=== PATIENT | male | born 1990 | race Caucasian/White ===

== ENCOUNTER 2024-07-15 14:57 | Emergency (ER) | payer OTHER, SELFPAY ==
[2024-07-15 15:05] VITALS: BP 113/77; PULSE 56; RESP 20; TEMP 37; O2SAT 100; BMI 19.0
--- NOTE | 2024-07-15 17:57 | ED_ITS ---
HPI - Skin/Abscess/Foreign Bdy <Leslie Aguayo PA-C - Last Filed: 07/15/24 19:43> General Chief complaint: Skin/Abscess/Foreign Body Stated complaint: painful bump on rectum Time Seen by Provider: 07/15/24 17:57 Source: patient Mode of arrival: Ambulatory Limitations: no limitations History of Present Illness HPI narrative: Mr. Johnson is a pleasant 33-year-old MSM gentleman with no significant past medical history who presents to the emergency department for rectal pain x 4 days. 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 Saturday evening he noticed a small painful bump on his anus. This bump has continued to get slightly more large and painful since then and he noticed some bloody drainage out of it. Describes bump as a purplish flesh toned area of swelling directly in the center of the anus. He has not had a bowel movement since then, he is not constipated or having diarrhea. He denies abdominal pain, nausea, vomiting, fevers, dysuria, penile discharge, history of abdominal surgery. Related Data Previous Rx's Medication Instructions Recorded hydrocortisone 1 % topical cream 1 applic topical BID-QID 7 days 07/15/24 (Preparation H Hydrocortisone) #28.35 grams Review of Systems <Leslie Aguayo PA-C - Last Filed: 07/15/24 19:43> Review of Systems ROS Unobtainable: All systems reviewed & are unremarkable except as noted in HPI and below Patient History <Leslie Aguayo PA-C - Last Filed: 07/15/24 19:43> Social History Smoking Status: Never smoker Smoking Status: Never smoker Exam <Leslie Aguayo PA-C - Last Filed: 07/15/24 19:43> Narrative Exam Narrative: GENERAL: 33 year old patient appears stated age. Well-developed patient, in no acute distress. HEAD: Atraumatic. Normocephalic. NECK: Trachea midline. Cervical ROM intact. CARDIOVASCULAR: Regular rate and rhythm. RESPIRATORY: Nonlabored respirations. Speaking in clear, full sentences. Clear to auscultation GASTROINTESTINAL: Abdomen soft, non-tender, nondistended. Normal BS. RECTAL: Patient gave verbal consent for rectal exam, Megan nurse grinding room supervisor present. On the right side of the patient's anus there is an approximately 0.5-1 cm firm area of swelling with slight purple discoloration, no surrounding erythema, no fluctuance, no drainage, consistent with thrombosed hemorrhoid. NEURO: AOx3. Clear speech. Moves all 4 extremities appropriately. SKIN: No rash or erythema of visible areas Initial Vital Signs Initial Vital Signs: Vital Signs Temperature 98.6 F 07/15/24 15:05 Pulse Rate 56 L 07/15/24 15:05 Respiratory Rate 20 07/15/24 15:05 Blood Pressure 113/77 07/15/24 15:05 Pulse Oximetry 100 07/15/24 15:05 Oxygen Delivery Method Room Air 07/15/24 15:05 <Patria Betancourt MD - Last Filed: 07/16/24 03:58> Initial Vital Signs Initial Vital Signs: Vital Signs Temperature 98.6 F 07/15/24 15:05 Pulse Rate 56 L 07/15/24 15:05 Respiratory Rate 20 07/15/24 15:05 Blood Pressure 113/77 07/15/24 15:05 Pulse Oximetry 100 07/15/24 15:05 Oxygen Delivery Method Room Air 07/15/24 15:05 Course <Leslie Aguayo PA-C - Last Filed: 07/15/24 19:43> Vital Signs Vital signs: Vital Signs - 8 hr 07/15/24 15:05 07/15/24 18:47 Temperature 98.6 F 97.7 F Pulse Rate 56 L 87 Respiratory Rate 20 19 Blood Pressure 113/77 123/75 Pulse Oximetry 100 94 Oxygen Delivery Method Room Air Room Air <Patria Betancourt MD - Last Filed: 07/16/24 03:58> Vital Signs Vital signs: Vital Signs - 8 hr 07/15/24 15:05 07/15/24 18:47 Temperature 98.6 F 97.7 F Pulse Rate 56 L 87 Respiratory Rate 20 19 Blood Pressure 113/77 123/75 Pulse Oximetry 100 94 Oxygen Delivery Method Room Air Room Air MDM - Skin/Abscess/Foreign Bdy <Leslie Aguayo PA-C - Last Filed: 07/15/24 19:43> Medical Records Medical records narrative: None available MDM Narrative Medical decision making narrative: 33-year-old MSM gentleman with no significant past medical history who presents to the emergency department for rectal pain x 4 days. Differential diagnosis includes but is not limited to hemorrhoid, skin tag, perirectal abscess, etc. On exam the patient is in no acute distress, nontoxic appearing, vital signs wit hin normal limits. On the right side of his anus he has a small area of firm swelling clinically consistent with a hemorrhoid, there is no surrounding erythema fluctuance or drainage concerning for abscess at this time. Recommended supportive care with preparation H, which Carrie pads, stool softeners, follow up with PCP and general surgery at this time. I did discuss very strict ED return precautions with the patient's for any signs or symptoms concerning for infection or bleeding. He verbalized understanding of all information is agreement with the plan. ED return precautions discussed. He is stable for discharge home. Discharge Plan Departure Patient Disposition: Home Clinical Impression: Hemorrhoid thrombosis Instructions: DI for Hemorrhoids Activity Restrictions/Additional Instructions: Dear Mr. Johnson, Today you were evaluated for rectal pain. The findings on your exam today are concerning for a hemorrhoid. I have prescribed hydrocortisone cream which you can apply directly to the hemorrhoid twice a day for the next 7 days. You may also use [id number] which Carrie pads as needed up to 6 times per day or after each bowel movement. Please start taking MiraLax daily to soften bowel movements. You may call to schedule an appointment with [facility] at [phone] for further evaluation. Please return to the emergency department immediately if you develop abdominal pain, significant bleeding, fevers, chills, nausea, vomiting or any other con cerns. Please follow up with your primary care doctor within the next 2-3 days for ER follow-up. (If you do not have a PCP you can call [phone]. to schedule an appointment with an [facility] Primary Care Provider) IF YOU DEVELOP ANY NEW OR WORSENING SYMPTOMS, RETURN TO THE ER! Please read the attached instructions, they highlight more specific treatments and interventions for you at home. Thank you for letting me participate in your care, Leslie Aguayo PA-C Prescriptions: New hydrocortisone [Preparation H Hydrocortisone] 1 % cream 1 applic topical BID-QID 7 Days Qty: 28.35 0RF Referrals: Miscellaneous,[facility] [Primary Care Provider] - Stand Alone Forms: Patient Portal/API/Survey ED Sign-out <Patria Betancourt MD - Last Filed: 07/16/24 03:58> Cosign ED Attending Cosignature Attestation: I was immediately available in the department for consultation throughout this patient's visit. Patria Betancourt MD
--- NOTE | 2024-07-15 18:26 | PC.NURSE ---
lash hemorrhoid in anus. No active bleeding noted; however, pt stated he had some bleeding earlier
[2024-07-15 18:47] VITALS: BP 123/75; PULSE 87; RESP 19; TEMP 36.5; O2SAT 94
== END 2024-07-15 18:53 | disposition home or self-care (01) ==
PROVIDERS: Emergency Provider Physician Assistant
DX: K64.5 Perianal venous thrombosis (principal)
CPT/HCPCS: 99281

== ENCOUNTER 2024-07-16 19:11 | Emergency (ER) | payer OTHER, SELFPAY ==
[2024-07-16 19:20] VITALS: BP 131/71; PULSE 84; RESP 14; TEMP 36.7; O2SAT 97
--- NOTE | 2024-07-16 19:27 | ED.GENADULT ---
HPI - General Adult General Chief complaint: Recheck/Abnormal Lab/Rx Stated complaint: here yesterday, abcess bleeding Time Seen by Provider: 07/16/24 19:27 History of Present Illness HPI narrative: 33-year-old gentleman seen yesterday for thrombosed hemorrhoid was hold come back with bleeding and he noticed bleeding that is started this morning. Initially just a small amount on tissue and then has continued to the point that he has using a small pad. Pain is slightly improved. He has not yet had a chance to package pick up the preparation H with hydrocortisone nor the stool softener but has plans to do so. No fevers, no dizziness no abdominal pain Related Data Previous Rx's Medication Instructions Recorded hydrocortisone 1 % topical cream 1 applic topical BID-QID 7 days 07/15/24 (Preparation H Hydrocortisone) #28.35 grams Allergies Allergy/AdvReac Type Severity Reaction Status Date / Time No Known Drug Allergies Allergy Verified 07/16/24 19:28 Review of Systems Review of Systems Narrative: Pertinent positive and negative findings as per HPI Patient History Social History Smoking Status: Never smoker Smoking Status: Never smoker Exam Initial Vital Signs Initial Vital Signs: Vital Signs Temperature 98.1 F 07/16/24 19:20 Pulse Rate 84 07/16/24 19:20 Respiratory Rate 14 07/16/24 19:20 Blood Pressure 131/71 07/16/24 19:20 Pulse Oximetry 97 07/16/24 19:20 Oxygen Delivery Method Room Air 07/16/24 19:20 General: Alert appropriate in no acute distress Respiratory: Able to speak in full sentences, no obvious respiratory distress Skin: No obvious rashes, warm and dry Neurologic: Grossly intact no obvious asymmetries or abnormalities Psych: appropriate insight and affect, cooperative Rectal exam shows a small internal hemorrhoid just passing the anal verge with a minor amount of clot in it at approximately the 4:00 a.m. position of his anus. Superior to that there is an internal hemorrhoid with a small erosion which appears to be where the blood is coming from. There is no active bleeding at this time Course Vital Signs Vital signs: Vital Signs - 8 hr 07/16/24 19:20 Temperature 98.1 F Pulse Rate 84 Respiratory Rate 14 Blood Pressure 131/71 Pulse Oximetry 97 Oxygen Delivery Method Room Air Medical Decision Making MDM Narrative Medical decision making narrative: 33-year-old gentleman with an internal hemorrhoid extending to the anal verge with the distal portion of it of the small thrombosis was seen yesterday causing pain. Today has a minor amount of bleeding. He was instructed to return with any bleeding and has done so.This is well-controlled. There was no indication for additional lab work or imaging. Findings reviewed with the patient in detail. Recommended that he follow through with picking up the preparation H hydrocortisone in the stool softener. Questions are answered he is safe for discharge Discharge Plan Departure Patient Disposition: Home Clinical Impression: Hemorrhoid thrombosis Activity Restrictions/Additional Instructions: thank you for following instructions and coming back with bleeding noted the bleeding is coming from just above the thrombosed area of the hemorrhoid and does seem to be well controlled. I believe it may actually relieve some of the pain and pressure from the thrombosis. At this time there is nothing new that needs to be done. I believe that the preparation H hydrocortisone will be helpful for pain control. There is no need for additional blood work or interventions at this time If you find that you are getting worse or develop any new symptoms, please feel free to return to the emergency department for further evaluation. Prescriptions: No Action hydrocortisone [Preparation H Hydrocortisone] 1 % cream 1 applic topical BID-QID 7 Days Qty: 28.35 0RF Referrals: Miscellaneous,[facility] [Primary Care Provider] - Stand Alone Forms: Patient Portal/API/Survey
[2024-07-16 22:41] VITALS: BP 106/66; PULSE 90; RESP 16; O2SAT 97
== END 2024-07-16 22:43 | disposition home or self-care (01) ==
PROVIDERS: Emergency Provider Emergency Medicine
DX: K64.5 Perianal venous thrombosis (principal)
CPT/HCPCS: 99281